=== PATIENT | female | born 1980 | race Caucasian/White ===

== ENCOUNTER 2023-03-26 17:16 | Emergency (ER) | payer MEDICAID ==
[~2023-03-26] VITALS: Ht 162.6 cm; Wt 90.0 kg
[2023-03-26] MEDS ORDERED: TETANUS, DIPHTHERIA, PERTUSSIS VAC/PF 0.5ML (>10YR OLD) IM ONE (18:30)
[2023-03-26] MEDS ORDERED: KETOROLAC 15MG/ML VIAL IM ONE (18:30)
[2023-03-26] MEDS ORDERED: NAPR-681 MT (19:56)
[2023-03-26 21:04] VITALS: BP 126/74
== END 2023-03-26 21:00 | disposition home or self-care (01) ==
LOC: ER 17:16
DX: R68.89 Other general symptoms and signs (principal); Z87.821 Personal history of retained foreign body fully removed
CPT/HCPCS: 28192; 73630; 90471; 90715; 96372; 99284; J1885; Z7610